=== PATIENT | male | born 1960 | race Caucasian/White ===

== ENCOUNTER 2019-08-07 06:46 | Day surgery (SDC) | payer OTHER, SELFPAY ==
--- NOTE | 2019-08-07 | PATH_ITS ---
[facility] Accession Number: [id number] . 01 Material submitted: . colon - COLON POLYPS AT 20 CM . 02 Diagnosis: Colon, Polyps at 20 cm, Biopsy: Tubular adenoma in one of three fragments. Hyperplastic polyp in one fragment. MRV 08/08/2019 0942 Local . 02 Electronically signed: . Karina Javed MD, Pathologist NPI- [id number] . 01 Gross description: . COLON POLYPS AT 20 CM: Received in formalin are 3 fragment(s) of carroll, soft tissue measuring 0.1 x 0.1 x 0.1 cm to 0.3 x 0.2 x 0.2 cm submitted entirely in 1 cassette(s) /[facility] 08/07/2019 193 Local . 02 Pathologist provided ICD-10: D12.6 . 02 CPT . 432716 Performed at: 01 [facility] [address] [facility], [place], [place] [id number] MD Regan Romo MD Phone: [phone] Performed at: 02 [facility] [address] [place], [place] [id number] MD Karina Javed MD Phone: [phone]
[2019-08-07 07:06] VITALS: BMI 23.3
[2019-08-07 07:11] VITALS: BP 119/70; PULSE 53; RESP 12; TEMP 36.7; O2SAT 98
[2019-08-07] MEDS: SODIUM CHLORIDE 0.9% 1,000 ML 200 ML IV (07:17)
--- NOTE | 2019-08-07 07:55 | PM.HP.1 ---
History of Present Illness History of Present Illness Date Patient Seen: 08/07/19 Time Patient Seen: 07:55 Chief complaint: [id number] Narrative: Patient presents for colorectal screening. They had a previous colonoscopy 10 years ago that demonstrated adenomatous polyps which were removed No personal or family history of colon cancer. On further history denies any recent gastrointestinal symptoms. No nausea, vomiting, abdominal pain, loss of appetite, unexplained weight loss, change in bowel habits, diarrhea, constipation, melena, hematochezia, or bright red blood per rectum. Patient History Family & Social History Social History: household members spouse Tobacco & Substance use: Smoking Status Former smoker alcohol intake current alcohol intake frequency 0-2 drinks per day Substance Use Type marijuana Meds Home Medications and Allergies Home Medications Medication Instructions Recorded Confirmed Type No Known Home Medications 08/07/19 08/07/19 History Allergies Allergy/AdvReac Type Severity Reaction Status Date / Time Sulfa (Sulfonamide Allergy Severe RASH Verified 08/07/19 07:03 Antibiotics) [SULFA (SULFONAMIDE ANTIBIOTICS)] Review of Systems Review of Systems Narrative: A 10 point review of systems is negative except as noted in the HPI Exam Vital Signs (past 8 hours): - 08/07/19 07:11 Temperature 98.1 F Pulse Rate 53 L Respiratory Rate 12 Blood Pressure 119/70 Pulse Oximetry 98 Oxygen Delivery Method Room Air Narrative Exam Narrative: General-no acute distress, well nourished HEENT-moist mucous membranes, no scleral icterus Neck-supple, no lymphadenopathy Chest- non labored respirations, clear to auscultation bilaterally Cardiac-regular rate no peripheral edema Abdomen-soft, nontender, non distended Extremities-warm, well perfused Neurological-alert and oriented, no focal deficits Assessment & Plan Assessment and plan (1) Screening for colon cancer: Current visit: Yes Status: Acute Assessment & Plan narrative: The patient requires colorectal screening and colonoscopy is recommended. Technical details were discussed. Risks, benefits, alternatives explained. Risks including but not limited to myocardial infarction, aspiration, bleeding, pain, missed lesion, incomplete examination, need for further radiographic studies, colonic perforation, and need for major abdominal surgery were discussed. All questions were answered to their satisfaction, and they are in agreement with this plan.
--- NOTE | 2019-08-07 08:18 | PM.OP.ENDO ---
Operative Date/Time/Diagnoses Date of procedure: 08/07/19 Time of procedure: 08:18 Pre-op diagnosis: Screening colonoscopy Post-op diagnosis: same Procedure & Clinicians Study performed: Colonoscopy Same procedure as scheduled: Yes Indications: 59-year-old male last colonoscopy 10 years ago demonstrated adenomatous polyps presents for routine screening. Surgeon: Santino Enriquez Procedure Notes SCOAP/Timeout: Performed Procedure in detail: Patient placed in left lateral decubitus position. Time out was performed. Procedural sedation was administered with Versed and Fentanyl. A rectal exam demonstrated no external hemorrhoids no internal masses. Colonoscopy scope was placed into the rectum and advanced through the colon to the cecum. The ileocecal valve was identified. The scope was then slowly withdrawn examining colon thoroughly in all directions. The colonoscopy was notable for the following 1. Sigmoid diverticulosis 2. Hyperplastic appearing polyps x2 at 20 cm from the anal verge removed with Jumbo forceps hemostasis observed. 3. Grade 1 internal hemorrhoids 4. Quality of prep fair Scope withdrawal time: 6 Sedation minutes: 17 Findings: diverticulosis and polyp Specimen(s): other (Polyp from 20 cm x 2) Complications: none Impression: Diverticulosis, polyps Post-procedure Recommendations: Colonscopy in 10 years Disposition: same day surgery
[2019-08-07] MEDS: fentaNYL 250 MCG/5 ML INJ IV (08:22)
[2019-08-07] MEDS: MIDAZOLAM 5 MG/5 ML VIAL IV (08:22)
[2019-08-07 08:25] VITALS: BP 131/78; PULSE 61; RESP 14; TEMP 36.4; O2SAT 97
[2019-08-07 08:27] VITALS: BP 124/73; PULSE 55; RESP 14; O2SAT 96
[2019-08-07 08:32] VITALS: BP 113/74; PULSE 55; RESP 14; O2SAT 96
[2019-08-07 08:37] VITALS: BP 113/84; PULSE 50; RESP 11; TEMP 36.3; O2SAT 97
== END 2019-08-07 08:52 | disposition home or self-care (01) ==
PROVIDERS: PCP Internal Medicine; Referring Provider Surgery; Visit Provider Surgery
PROC: 0DJD8ZZ Inspection of Lower Intestinal Tract, Via Natural or Artificial Opening Endoscopic (ICD-10-PCS; CPT 45378; principal; 2019-08-07 07:45)
DX: Z12.11 Encounter for screening for malignant neoplasm of colon (principal); D12.6 Benign neoplasm of colon, unspecified; K64.0 First degree hemorrhoids; K57.30 Diverticulosis of large intestine without perforation or abscess without bleeding
CPT/HCPCS: 45380; 99152; J2250; J3010

== ENCOUNTER → 2020-01-31 13:10 | Outpatient (CLI) | payer OTHER, SELFPAY ==
[2020-01-31 14:07] LABS: Appearance Urine UA CLOUDY; Bilirubin Urine UA NEGATIVE (NEGATIVE); Color Urine UA YELLOW; Glucose Urine UA NEGATIVE (Negative); Ketones Urine UA NEGATIVE (NEGATIVE); Leukocyte Esterase Urine UA 2+ (NEGATIVE); Nitrite Urine UA NEGATIVE (Negative); Occult Blood Urine UA 3+ (Negative); Protein Urine UA 3+ (Negative); Urobilinogen Urine UA 0.2 E.U./dL (0.2)
[2020-01-31 14:10] LABS: Bacteria Urine Moderate (10-30); RBC Urine >100/HPF (0-5/HPF); WBC Urine >100/HPF (0-5/HPF)
[2020-01-31 14:11] LABS: Culture Indicated Urine Specimen Cultured
== END ==
PROVIDERS: PCP Internal Medicine; Referring Provider Student in an Organized Health Care Education/Training Program; Visit Provider Student in an Organized Health Care Education/Training Program
DX: R30.0 Dysuria (principal); R35.0 Frequency of micturition
CPT/HCPCS: 81001; 87077; 87086; 87186

== ENCOUNTER → 2020-03-23 08:25 | Outpatient (CLI) | payer OTHER, SELFPAY ==
[2020-03-25 06:01] LABS: COVID19 Sendout Not Detected (Not Detect)
== END ==
PROVIDERS: PCP Internal Medicine; Visit Provider Physician Assistant
DX: Z11.59 Encounter for screening for other viral diseases (principal)
CPT/HCPCS: 87635

== ENCOUNTER → 2020-06-03 11:55 | Outpatient (CLI) | payer OTHER, SELFPAY ==
[2020-06-03 13:01] LABS: Bilirubin Urine UA NEGATIVE (NEGATIVE); Color Urine UA YELLOW; Glucose Urine UA NEGATIVE (Negative); Ketones Urine UA NEGATIVE (NEGATIVE); Leukocyte Esterase Urine UA TRACE (NEGATIVE); Nitrite Urine UA NEGATIVE (Negative); Occult Blood Urine UA TRACE-INTACT (Negative); Protein Urine UA NEGATIVE (Negative); Specific Gravity Urine UA 1.015 (1.000-1.035); Urobilinogen Urine UA 0.2 E.U./dL (0.2)
[2020-06-03 13:03] LABS: Appearance Urine UA Slightly Cloudy
[2020-06-03 13:13] LABS: RBC Urine 0-1/HPF (0-5/HPF); Squamous Epithelial Cell Urine 0-1 /HPF (0-5/HPF); WBC Urine 5-10/HPF (0-5/HPF)
[2020-06-03 13:14] LABS: Bacteria Urine Occasional (0-1); Culture Indicated Urine Specimen Cultured
== END ==
PROVIDERS: PCP Internal Medicine; Referring Provider Internal Medicine; Visit Provider Internal Medicine
DX: R30.0 Dysuria (principal)
CPT/HCPCS: 81001; 87086

== ENCOUNTER → 2020-08-09 12:27 | Outpatient (CLI) | payer OTHER, SELFPAY | PROVIDERS: PCP Internal Medicine; Visit Provider Physician Assistant | DX: R30.0 Dysuria (principal) | CPT/HCPCS: 87086 ==

== ENCOUNTER → 2020-08-29 17:15 | Outpatient (CLI) | payer OTHER, SELFPAY | PROVIDERS: PCP Internal Medicine; Visit Provider Physician Assistant | DX: N30.01 Acute cystitis with hematuria (principal) | CPT/HCPCS: 87086 ==

== ENCOUNTER → 2020-09-13 08:31 | Outpatient (CLI) | payer OTHER, SELFPAY ==
[2020-09-13 10:11] LABS: Alanine Aminotransferase 14 IU/L (<50); Albumin 3.9 g/dL (3.5-5.0); Albumin Globulin Ratio 1.3 (1.0-2.8); Alkaline Phosphatase 46 U/L (38-126); Aspartate Aminotransferase 23 IU/L (17-59); BUN Creatinine Ratio 27.6 (6-22); Bilirubin Total 0.3 mg/dL (0.2-1.3); Blood Urea Nitrogen 21 mg/dL (9-20); Carbon Dioxide 27 mmol/L (22-32); Chloride 106 mmol/L (98-107); Cholesterol 187 mg/dL (140-199); Estimated Glomerular Filt Rate > 60.0 mL/min (>60); Globulin 3.1 g/dL (1.7-4.1); Glucose 97 mg/dL (80-110); HDL Cholesterol 78 mg/dL (40-60); HEMOLYSIS < 15 (0-50); LDL Cholesterol Calculated 99 mg/dL (<100); Potassium 4.2 mmol/L (3.4-5.1); Sodium 139 mmol/L (137-145); Triglycerides 50 mg/dL (35-150)
[2020-09-13 10:39] LABS: Prostate Specific Antigen Scrn 6.52 ng/mL (0.1-4.0)
== END ==
PROVIDERS: PCP Internal Medicine; Referring Provider Internal Medicine; Visit Provider Internal Medicine
DX: Z13.1 Encounter for screening for diabetes mellitus (principal); Z13.220 Encounter for screening for lipoid disorders; Z13.6 Encounter for screening for cardiovascular disorders; Z12.5 Encounter for screening for malignant neoplasm of prostate
CPT/HCPCS: 36415; 80053; 80061; G0103

== ENCOUNTER → 2020-09-19 10:02 | Outpatient (CLI) | payer OTHER, SELFPAY ==
[2020-09-20 09:11] LABS: PSA Free % 7.2 % (.); PSA, Total 4.7 ng/mL (0.0-4.0)
== END ==
PROVIDERS: PCP Internal Medicine; Referring Provider Internal Medicine; Visit Provider Internal Medicine
DX: R97.20 Elevated prostate specific antigen [PSA] (principal)
CPT/HCPCS: 36415; 84153; 84154

== ENCOUNTER 2020-12-31 08:15 | Outpatient (RCR) | payer OTHER, SELFPAY ==
--- NOTE | 2020-12-16 16:00 | PT.OIE ---
Current Diagnoses Sciatica, right side (12/16/20) Past Medical History (Last Updated 12/06/20 @ 10:44 by Tushar Beatty MD) BPH w urinary obs/LUTS Elevated PSA History of UTI Incomplete bladder emptying Visit Care Team Role Provider Type Tushar Beatty MD Attending Provider Physician Family Provider Primary Care Provider Referring Provider Specialty: Internal Medicine Address: [address] [place] [address], [address], [facility] Email: [email or web address] Physical Therapy Initial Evaluation PT-OP-A Visit Information Start: 12/16/20 16:11 Freq: Status: Active Protocol: Document 12/16/20 16:00 HH (Rec: 12/16/20 16:30 HH [email or web address]) Out-Patient Physical Therapy Visit Information Visit Information Visit Type Initial Evaluation Visit Start Time 15:15 Visit Stop Time 16:05 Total Visit Minutes 50 Visit Number 07/01 Number of RN ELIGIBILITY Visits 0 Evaluation Information Evaluation Date 12/16/20 PT-OP-B Current Condition Start: 12/16/20 16:11 Freq: Status: Active Protocol: Document 12/16/20 16:00 HH (Rec: 12/16/20 16:30 HH [email or web address]) Current Condition History of Current Condition Onset Date early November Current Complaints R sciatica, difficulty in walking and standing. History of Current Condition Leland is a 60 yo male here for his new onset of R sciatic started in November. He stated his pain located mostly at R buttock but with tingling and numbness towards lateral calf and dorsal aspect of the foot. His pain worse with standing and walking but immediately better with bend over/ sitting position. Symptoms have been 10-15 % better since he went to see Dr. Beatty who gave him some anti-inflammatory medication. Pt also went to see his chiropractor but no positive result. Pt is very active who has a big yard to manage. 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 Prior Treatments and Tests failed chiropractic treatment anti-inflammatory medication with good pain control Future Testing and Treatments Planned Dr. Beatty stated further imaging / nerve study might be needed if conservative tx failed. PT-OP-C Subjective Start: 12/16/20 16:11 Freq: Status: Active Protocol: Document 12/16/20 16:00 HH (Rec: 12/16/20 16:30 [email or web address]) Patient Questionnaires Oswestry Low Back Index Oswestry Score 26 Oswestry Impairment 20 to 39% Impaired (Score 20- 39) OP-PT Pain Assessment Location R buttock Pain Location Details R buttock Intensity 4 Scale Used Numeric (0 - 10) Description Pinching,Pressure,Pulling, Radiating,Sharp,Shooting Frequency Frequent Pain Aggravating Factors Position,Activity,Exercise, Standing,Walking,Stair Climbing Pain Alleviating Factors Position,Sitting PT-OP-D Balance Start: 12/16/20 16:11 Freq: Status: Active Protocol: Document 12/16/20 16:00 HH (Rec: 12/16/20 16:30 [email or web address]) Balance Tests Single Limb Standing Single Limb- Right 22, 10 s with UE out, toe out Single Limb- Left 40, 45s PT-OP-F Manual Assessment Start: 12/16/20 16:11 Freq: Status: Active Protocol: Document 12/16/20 16:00 HH (Rec: 12/16/20 16:30 [email or web address]) Manual Assessments Soft Tissue Assessment Soft Tissue Mobility Assessment significant hypertonicity with pain on piriformis and gluteal muscles PT-OP-G Mobility & Gait Start: 12/16/20 16:11 Freq: Status: Active Protocol: Document 12/16/20 16:00 HH (Rec: 12/16/20 16:30 [email or web address]) OP Gait Assessment Gait Deviations General Gait Pattern Antalgic,Decreased Stride Length,Decreased Feet Clearance,Lateral Trunk Lean Comments Gait Comments +ve R trendelenburg sign, R toe out gait (ER tibia) PT-OP-H Neuro Start: 12/16/20 16:11 Freq: Status: Active Protocol: Document 12/16/20 16:00 HH (Rec: 12/16/20 16:30 [email or web address]) Sensation Evaluation Gross Sensation Gross Sensation Right LE Impaired Sensation Description Numbness,Tingling Dermatome Impairments L5 Comments Summary Comments tingling and numbness from lateral aspect of lower leg to dorsal aspect of R foot. Deep Tendon Reflex & Clonus Assessment Deep Tendon Reflex Bilateral Achilles Deep Tendon Reflex 2+ Normal Bilateral Patellar Deep Tendon Reflex 1+ Diminished PT-OP-J Posture/Palpation/Skin Start: 12/16/20 16:11 Freq: Status: Active Protocol: Document 12/16/20 16:00 HH (Rec: 12/16/20 16:30 [email or web address]) Posture Evaluation Position Standing Weight Distribution Weight Shifted Right Knee Posture (R) Genu Valgus,(R) Ext. Tibial Torsion Ankle/Foot Posture (R) Pronated,(R) Forefoot Abducted Foot Arch (R) Low Arch Comments Posture Comments standing posture= R lateral weight shift on R with increased pain pain decreased with assisted lateral weight shift to L PT-OP-K Range of Motion Start: 12/16/20 16:11 Freq: Status: Active Protocol: Document 12/16/20 16:00 HH (Rec: 12/16/20 16:30 [email or web address]) Lumbar Spine Range of Motion Lumbar Spine Active Degrees Testing Position Standing Comments toe touch test= reach mid vega , no pain but stretching sensation at lumbar noted. regine sign noted lateral flexion to R= increased R buttock pain lateral flexion to L= no increased buttock pain R quadrant test= significant increased R buttock pain L quadrant test= no increased pain Hip Goniometric Range of Motion Hip Right Active Hip ROM WFL Yes Testing Position Supine Straight Leg Raise 90 Comments PSLR = increased R neural tension noted from buttock to posterior thigh Left Active Hip ROM WFL Yes Testing Position Supine Straight Leg Raise 90 Comments PSLR =90 PT-OP-M Strength Start: 12/16/20 16:11 Freq: Status: Active Protocol: Document 12/16/20 16:00 HH (Rec: 12/16/20 16:30 [email or web address]) Hip Strength Hip Manual Muscle Testing Right Flexion (L2) 5 Normal Extension (S1) 4 Good Abduction 4 Good Adduction 5 Normal Left Flexion (L2) 5 Normal Extension (S1) 5 Normal Abduction 5 Normal Adduction 5 Normal Knee Strength Knee Manual Muscle Testing Right Flexion (S2) 5 Normal Extension (L3) 5 Normal Left Flexion (S2) 5 Normal Extension (L3) 5 Normal Ankle/Foot Strength Ankle and Foot Manual Muscle Testing Right Dorsiflexion (L4) 5 Normal Plantarflexion (S1) 5 Normal Inversion 5 Normal Eversion (S1) 5 Normal Left Dorsiflexion (L4) 5 Normal Plantarflexion (S1) 5 Normal Inversion 5 Normal Eversion (S1) 5 Normal PT-OP-Q Treatments Start: 12/16/20 16:11 Freq: Status: Active Protocol: Document 12/16/20 16:00 HH (Rec: 12/16/20 16:30 HH [email or web address]) Therapeutic Exercises Supine Exercises tennis ball release Supine Exercise Name at R buttock Side right Comments for hEP Sitting Exercises lumbar flexion Sitting Exercise Name on chair Side bilateral Comments stretching feeling noted. for HEP Manual Therapy Treatment Manual Traction R hip Reps/Duration 4 mins Comments 10 sec hold pt reports buttock pain relief PT-OP-T Assessment and Plan Start: 12/16/20 16:11 Freq: Status: Active Protocol: Document 12/16/20 16:00 HH (Rec: 12/17/20 07:59 HH [email or web address]) Physical Therapy Assessment Rehab Potential Rehabilitation Potential Good Evaluation Complexity Number of Personal Factors/Comorbidities 1-2 Number of Body Systems Impaired 1-2 Clinical Presentation at Evaluation Stable Impairments Impairments Activity Tolerance,Balance, Functional Activities, Functional Mobility,Gait,Pain, Posture,ROM,Sensation,Soft Tissue Mobility,Strength, Transfers Goals hep Impairment pt does not have a HEP Short Term Goal (STG) pt will be able to complete daily HEP independently and safely STG Duration 4 weeks neuro-sign Impairment pt has tingling numbness sensation to lateral calf and dorsal of r foot Short Term Goal (STG) pt will show improved neuro sign by not having tingling / numbness sensation to lateral calf and dorsal aspect of the R foot STG Duration 8 weeks activity tolerance Impairment pt is unable to walk >1/4 mile or standing >1 hour d/t pain Short Term Goal (STG) pt will show improved activity tolerance to be able to walk >1/2 mile without increase symptoms STG Duration 4 weeks Intermediate Goal (LTG) pt will show improved activity tolerance to be able to walk >1 mile without increase symptoms LTG Duration 8 weeks owestry Impairment pt scores 26 on Owestry Short Term Goal (STG) pt will show improved overall quality of life by scoring < 20 on Owestry STG Duration 4 weeks Intermediate Goal (LTG) pt will show improved overall quality of life by scoring < 15 on Owestry LTG Duration 8 weeks Assessment Summary Assessment Leland is a 60yo active male here for his new onset of R buttock pain with numbness down to his R lateral calf and dorsal aspect of the R foot since November. Upon assessment, pt presents signs of lumbar radiculopathy at L5 nerve root who shows loss of sensation at the dermatome level. He does not have strength loss and gross motor = WFL. However , pt stands with R lateral weight shift and trunk extension whose symptoms reduced with long axis traction at R LE and postural correction. His posture might be caused by multiple surgeries on his RLE(see above ). He also doesnt c/o pain with flexion pattern as well. 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 Plan Frequency and Duration Frequency of Treatment 2x/Week Duration of Treatment 8 weeks Plan of Care Start Date 12/16/20 Plan of Care End Date 02/15/21 Therapeutic Interventions Therapeutic Interventions Aquatic Therapy,Balance Training,Gait Training,Home Exercise Program,Joint Mobilizations,Manual Therapy, Neuromuscular Re-education, Patient/Caregiver Education, Self-Care/Home Management,Soft Tissue Mobilization,Taping, Therapeutic Activities, Therapeutic Exercises Modalities Cold Pack/Ice Massage,Electric Stimulation,Hot Packs, Infrared Therapy,Traction- Mechanical,Ultrasound Next Visit Focus/Plan Next Note Type Treatment Note Next Visit Plan review tennis ball release, trunk flexion stretch start hip traction piriformis stretch open book stretch check R calf strength postural correction
--- NOTE | 2020-12-16 16:00 | PT.OPPOC ---
Physical, Occupational & Speech Therapy At [facility] Current Diagnoses Sciatica, right side (12/16/20) Visit Care Team Role Provider Type Tushar Beatty MD Attending Provider Physician Family Provider Primary Care Provider Referring Provider Specialty: Internal Medicine Address: [address] [place] [address], [address], [address] Email: [email or web address] Plan Of Care PT-OP-T Assessment and Plan Start: 12/16/20 16:11 Freq: Status: Active Protocol: Document 12/16/20 16:00 HH (Rec: 12/17/20 07:59 [email or web address]) Physical Therapy Assessment Rehab Potential Rehabilitation Potential Good Evaluation Complexity Number of Personal Factors/Comorbidities 1-2 Number of Body Systems Impaired 1-2 Clinical Presentation at Evaluation Stable Impairments Impairments Activity Tolerance,Balance, Functional Activities, Functional Mobility,Gait,Pain, Posture,ROM,Sensation,Soft Tissue Mobility,Strength, Transfers Goals hep Impairment pt does not have a HEP Short Term Goal (STG) pt will be able to complete daily HEP independently and safely STG Duration 4 weeks neuro-sign Impairment pt has tingling numbness sensation to lateral calf and dorsal of r foot Short Term Goal (STG) pt will show improved neuro sign by not having tingling / numbness sensation to lateral calf and dorsal aspect of the R foot STG Duration 8 weeks activity tolerance Impairment pt is unable to walk >1/4 mile or standing >1 hour d/t pain Short Term Goal (STG) pt will show improved activity tolerance to be able to walk >1/2 mile without increase symptoms STG Duration 4 weeks Kosher Butcher Goal (LTG) pt will show improved activity tolerance to be able to walk >1 mile without increase symptoms LTG Duration 8 weeks owestry Impairment pt scores 26 on Owestry Short Term Goal (STG) pt will show improved overall quality of life by scoring < 20 on Owestry STG Duration 4 weeks Jail Goal (LTG) pt will show improved overall quality of life by scoring < 15 on Owestry LTG Duration 8 weeks Assessment Summary Assessment Leland is a 60yo active male here for his new onset of R buttock pain with numbness down to his R lateral calf and dorsal aspect of the R foot since November. Upon assessment, pt presents signs of lumbar radiculopathy at L5 nerve root who shows loss of sensation at the dermatome level. He does not have strength loss and gross motor = WFL. However , pt stands with R lateral weight shift and trunk extension whose symptoms reduced with long axis traction at R LE and postural correction. His posture might be caused by multiple surgeries on his RLE(see above ). He also doesnt c/o pain with flexion pattern as well. 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 Plan Frequency and Duration Frequency of Treatment 2x/Week Duration of Treatment 8 weeks Plan of Care Start Date 12/16/20 Plan of Care End Date 02/15/21 Therapeutic Interventions Therapeutic Interventions Aquatic Therapy,Balance Training,Gait Training,Home Exercise Program,Joint Mobilizations,Manual Therapy, Neuromuscular Re-education, Patient/Caregiver Education, Self-Care/Home Management,Soft Tissue Mobilization,Taping, Therapeutic Activities, Therapeutic Exercises Modalities Cold Pack/Ice Massage,Electric Stimulation,Hot Packs, Infrared Therapy,Traction- Mechanical,Ultrasound Next Visit Focus/Plan Next Note Type Treatment Note Next Visit Plan review tennis ball release, trunk flexion stretch start hip traction piriformis stretch open book stretch check R calf strength postural correction Plan of Care Dates Plan of Care Start Date 12/16/20 Plan of Care End Date 02/15/21 Electronically Signed by: Demar Palm, PT 12/17/20 8206 Please Sign and Return: I have reviewed this Plan of Care and certify that the skilled therapy services above are required to meet the patient?s needs. Physician Signature Date Printed Name and Credentials Clinical Instructor Signature Printed Name and Credentials
--- NOTE | 2020-12-18 10:34 | PT.OTN ---
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 History of Current Condition Leland is a 60 yo male here for his new onset of R sciatic started in November. He stated his pain located mostly at R buttock but with tingling and numbness towards lateral calf and dorsal aspect of the foot. His pain worse with standing and walking but immediately better with bend over/ sitting position. Symptoms have been 10-15 % better since he went to see Dr. Beatty who gave him some anti-inflammatory medication. Pt also went to see his chiropractor but no positive result. Pt is very active who has a big yard to manage. 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 Prior Treatments and Tests failed chiropractic treatment anti-inflammatory medication with good pain control Future Testing and Treatments Planned Dr. Beatty stated further imaging / nerve study might be needed if conservative tx failed. PT-OP-C Subjective Start: 12/16/20 16:11 Freq: Status: Active Protocol: Document 12/18/20 09:51 HH (Rec: 12/18/20 10:34 [id number]) OP-PT Subjective Patient Comments Patient Comments i started trying the exercises so far. Its doing okay Patient Reported Progress Same PT-OP-D Balance Start: 12/16/20 16:11 Freq: Status: Active Protocol: Document 12/16/20 16:00 HH (Rec: 12/16/20 16:30 [email or web address]) Balance Tests Single Limb Standing Single Limb- Right 22, 10 s with UE out, toe out Single Limb- Left 40, 45s PT-OP-F Manual Assessment Start: 12/16/20 16:11 Freq: Status: Active Protocol: Document 12/16/20 16:00 HH (Rec: 12/16/20 16:30 [email or web address]) Manual Assessments Soft Tissue Assessment Soft Tissue Mobility Assessment significant hypertonicity with pain on piriformis and gluteal muscles PT-OP-G Mobility & Gait Start: 12/16/20 16:11 Freq: Status: Active Protocol: Document 12/16/20 16:00 HH (Rec: 12/16/20 16:30 [email or web address]) OP Gait Assessment Gait Deviations General Gait Pattern Antalgic,Decreased Stride Length,Decreased Feet Clearance,Lateral Trunk Lean Comments Gait Comments +ve R trendelenburg sign, R toe out gait (ER tibia) PT-OP-H Neuro Start: 12/16/20 16:11 Freq: Status: Active Protocol: Document 12/16/20 16:00 HH (Rec: 12/16/20 16:30 [email or web address]) Sensation Evaluation Gross Sensation Gross Sensation Right LE Impaired Sensation Description Numbness,Tingling Dermatome Impairments L5 Comments Summary Comments tingling and numbness from lateral aspect of lower leg to dorsal aspect of R foot. Deep Tendon Reflex & Clonus Assessment Deep Tendon Reflex Bilateral Achilles Deep Tendon Reflex 2+ Normal Bilateral Patellar Deep Tendon Reflex 1+ Diminished PT-OP-J Posture/Palpation/Skin Start: 12/16/20 16:11 Freq: Status: Active Protocol: Document 12/16/20 16:00 HH (Rec: 12/16/20 16:30 [email or web address]) Posture Evaluation Position Standing Weight Distribution Weight Shifted Right Knee Posture (R) Genu Valgus,(R) Ext. Tibial Torsion Ankle/Foot Posture (R) Pronated,(R) Forefoot Abducted Foot Arch (R) Low Arch Comments Posture Comments standing posture= R lateral weight shift on R with increased pain pain decreased with assisted lateral weight shift to L PT-OP-K Range of Motion Start: 12/16/20 16:11 Freq: Status: Active Protocol: Document 12/16/20 16:00 HH (Rec: 12/16/20 16:30 [email or web address]) Lumbar Spine Range of Motion Lumbar Spine Active Degrees Testing Position Standing Comments toe touch test= reach mid vega , no pain but stretching sensation at lumbar noted. regine sign noted lateral flexion to R= increased R buttock pain lateral flexion to L= no increased buttock pain R quadrant test= significant increased R buttock pain L quadrant test= no increased pain Hip Goniometric Range of Motion Hip Right Active Hip ROM WFL Yes Testing Position Supine Straight Leg Raise 90 Comments PSLR = increased R neural tension noted from buttock to posterior thigh Left Active Hip ROM WFL Yes Testing Position Supine Straight Leg Raise 90 Comments PSLR =90 PT-OP-M Strength Start: 12/16/20 16:11 Freq: Status: Active Protocol: Document 12/16/20 16:00 HH (Rec: 12/16/20 16:30 [email or web address]) Hip Strength Hip Manual Muscle Testing Right Flexion (L2) 5 Normal Extension (S1) 4 Good Abduction 4 Good Adduction 5 Normal Left Flexion (L2) 5 Normal Extension (S1) 5 Normal Abduction 5 Normal Adduction 5 Normal Knee Strength Knee Manual Muscle Testing Right Flexion (S2) 5 Normal Extension (L3) 5 Normal Left Flexion (S2) 5 Normal Extension (L3) 5 Normal Ankle/Foot Strength Ankle and Foot Manual Muscle Testing Right Dorsiflexion (L4) 5 Normal Plantarflexion (S1) 5 Normal Inversion 5 Normal Eversion (S1) 5 Normal Left Dorsiflexion (L4) 5 Normal Plantarflexion (S1) 5 Normal Inversion 5 Normal Eversion (S1) 5 Normal PT-OP-Q Treatments Start: 12/16/20 16:11 Freq: Status: Active Protocol: Document 12/18/20 09:51 (Rec: 12/18/20 10:34 [id number]) Therapeutic Exercises Supine Exercises piriformis Side right Reps/Minutes 15 sec hold x 5 Comments for HEP knee to chest Side bilateral Reps/Minutes 15 sec hold x5 Comments for HEP tennis ball release Supine Exercise Name at R buttock Side right Comments for hEP Sidelying Exercises open book Reps/Minutes 15sec hold x5 Comments for HEP Standing Exercises lateral flexion Standing Exercise Name to L Comments no discomfort noted, pulling sensation at R side Manual Therapy Treatment Manual Traction R hip Comments 10 sec hold x5 pt reports buttock pain relief PT-OP-T Assessment and Plan Start: 12/16/20 16:11 Freq: Status: Active Protocol: Document 12/18/20 09:51 HH (Rec: 12/18/20 10:34 [id number]) Physical Therapy Assessment Goals hep Impairment pt does not have a HEP Short Term Goal (STG) pt will be able to complete daily HEP independently and safely STG Duration 4 weeks neuro-sign Impairment pt has tingling numbness sensation to lateral calf and dorsal of r foot Short Term Goal (STG) pt will show improved neuro sign by not having tingling / numbness sensation to lateral calf and dorsal aspect of the R foot STG Duration 8 weeks activity tolerance Impairment pt is unable to walk >1/4 mile or standing >1 hour d/t pain Short Term Goal (STG) pt will show improved activity tolerance to be able to walk >1/2 mile without increase symptoms STG Duration 4 weeks Residential Goal (LTG) pt will show improved activity tolerance to be able to walk >1 mile without increase symptoms LTG Duration 8 weeks owestry Impairment pt scores 26 on Owestry Short Term Goal (STG) pt will show improved overall quality of life by scoring < 20 on Owestry STG Duration 4 weeks Footwear Factory Worker Goal (LTG) pt will show improved overall quality of life by scoring < 15 on Owestry LTG Duration 8 weeks Assessment Summary Assessment I noticed pt also tends to stand with extended R hip which increases mechanical pressure R lumbar and hip region. This session focused on decompression with traction , lateral flexion to L and open book stretch and pt did not feel pain in standing at the end of the session. Will review his HEP next visit. Physical Therapy Plan Frequency and Duration Frequency of Treatment 2x/Week Duration of Treatment 8 weeks Plan of Care Start Date 12/16/20 Plan of Care End Date 02/15/21 Therapeutic Interventions Therapeutic Interventions Aquatic Therapy,Balance Training,Gait Training,Home Exercise Program,Joint Mobilizations,Manual Therapy, Neuromuscular Re-education, Patient/Caregiver Education, Self-Care/Home Management,Soft Tissue Mobilization,Taping, Therapeutic Activities, Therapeutic Exercises Modalities Cold Pack/Ice Massage,Electric Stimulation,Hot Packs, Infrared Therapy,Traction- Mechanical,Ultrasound Next Visit Focus/Plan Next Note Type Treatment Note Next Visit Plan review tennis ball release, trunk flexion stretch start hip traction piriformis stretch open book stretch check R calf strength postural correction
--- NOTE | 2020-12-24 15:23 | PT.OTN ---
Current Diagnoses Sciatica, right side (12/24/20) Physical Therapy Treatment Note PT-OP-A Visit Information Start: 12/16/20 16:11 Freq: Status: Active Protocol: Document 12/24/20 08:15 AMB (Rec: 12/24/20 15:21 AMB [email or web address]) Out-Patient Physical Therapy Visit Information Visit Information Visit Type Treatment Note Visit Start Time 08:15 Visit Stop Time 09:00 Total Visit Minutes 45 Visit Number 08/29 PT-OP-B Current Condition Start: 12/16/20 16:11 Freq: Status: Active Protocol: Document 12/16/20 16:00 HH (Rec: 12/16/20 16:30 HH [email or web address]) Current Condition History of Current Condition Onset Date early November Current Complaints R sciatica, difficulty in walking and standing. History of Current Condition Leland is a 60 yo male here for his new onset of R sciatic started in November. He stated his pain located mostly at R buttock but with tingling and numbness towards lateral calf and dorsal aspect of the foot. His pain worse with standing and walking but immediately better with bend over/ sitting position. Symptoms have been 10-15 % better since he went to see Dr. Beatty who gave him some anti-inflammatory medication. Pt also went to see his chiropractor but no positive result. Pt is very active who has a big yard to manage. 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 Prior Treatments and Tests failed chiropractic treatment anti-inflammatory medication with good pain control Future Testing and Treatments Planned Dr. Beatty stated further imaging / nerve study might be needed if conservative tx failed. PT-OP-C Subjective Start: 12/16/20 16:11 Freq: Status: Active Protocol: Document 12/24/20 08:15 AMB (Rec: 12/24/20 15:21 AMB [email or web address]) OP-PT Subjective Patient Comments Patient Comments I have been doing the exercises in the morning to stretch and it seems helpful in the morning, still having pain at the end of the day. PT-OP-D Balance Start: 12/16/20 16:11 Freq: Status: Active Protocol: Document 12/16/20 16:00 HH (Rec: 12/16/20 16:30 HH [email or web address]) Balance Tests Single Limb Standing Single Limb- Right 22, 10 s with UE out, toe out Single Limb- Left 40, 45s PT-OP-F Manual Assessment Start: 12/16/20 16:11 Freq: Status: Active Protocol: Document 12/16/20 16:00 HH (Rec: 12/16/20 16:30 [email or web address]) Manual Assessments Soft Tissue Assessment Soft Tissue Mobility Assessment significant hypertonicity with pain on piriformis and gluteal muscles PT-OP-G Mobility & Gait Start: 12/16/20 16:11 Freq: Status: Active Protocol: Document 12/16/20 16:00 HH (Rec: 12/16/20 16:30 [email or web address]) OP Gait Assessment Gait Deviations General Gait Pattern Antalgic,Decreased Stride Length,Decreased Feet Clearance,Lateral Trunk Lean Comments Gait Comments +ve R trendelenburg sign, R toe out gait (ER tibia) PT-OP-H Neuro Start: 12/16/20 16:11 Freq: Status: Active Protocol: Document 12/16/20 16:00 HH (Rec: 12/16/20 16:30 [email or web address]) Sensation Evaluation Gross Sensation Gross Sensation Right LE Impaired Sensation Description Numbness,Tingling Dermatome Impairments L5 Comments Summary Comments tingling and numbness from lateral aspect of lower leg to dorsal aspect of R foot. Deep Tendon Reflex & Clonus Assessment Deep Tendon Reflex Bilateral Achilles Deep Tendon Reflex 2+ Normal Bilateral Patellar Deep Tendon Reflex 1+ Diminished PT-OP-J Posture/Palpation/Skin Start: 12/16/20 16:11 Freq: Status: Active Protocol: Document 12/16/20 16:00 HH (Rec: 12/16/20 16:30 [email or web address]) Posture Evaluation Position Standing Weight Distribution Weight Shifted Right Knee Posture (R) Genu Valgus,(R) Ext. Tibial Torsion Ankle/Foot Posture (R) Pronated,(R) Forefoot Abducted Foot Arch (R) Low Arch Comments Posture Comments standing posture= R lateral weight shift on R with increased pain pain decreased with assisted lateral weight shift to L PT-OP-K Range of Motion Start: 12/16/20 16:11 Freq: Status: Active Protocol: Document 12/16/20 16:00 HH (Rec: 12/16/20 16:30 [email or web address]) Lumbar Spine Range of Motion Lumbar Spine Active Degrees Testing Position Standing Comments toe touch test= reach mid vega , no pain but stretching sensation at lumbar noted. regine sign noted lateral flexion to R= increased R buttock pain lateral flexion to L= no increased buttock pain R quadrant test= significant increased R buttock pain L quadrant test= no increased pain Hip Goniometric Range of Motion Hip Right Active Hip ROM WFL Yes Testing Position Supine Straight Leg Raise 90 Comments PSLR = increased R neural tension noted from buttock to posterior thigh Left Active Hip ROM WFL Yes Testing Position Supine Straight Leg Raise 90 Comments PSLR =90 PT-OP-M Strength Start: 12/16/20 16:11 Freq: Status: Active Protocol: Document 12/16/20 16:00 HH (Rec: 12/16/20 16:30 HH [email or web address]) Hip Strength Hip Manual Muscle Testing Right Flexion (L2) 5 Normal Extension (S1) 4 Good Abduction 4 Good Adduction 5 Normal Left Flexion (L2) 5 Normal Extension (S1) 5 Normal Abduction 5 Normal Adduction 5 Normal Knee Strength Knee Manual Muscle Testing Right Flexion (S2) 5 Normal Extension (L3) 5 Normal Left Flexion (S2) 5 Normal Extension (L3) 5 Normal Ankle/Foot Strength Ankle and Foot Manual Muscle Testing Right Dorsiflexion (L4) 5 Normal Plantarflexion (S1) 5 Normal Inversion 5 Normal Eversion (S1) 5 Normal Left Dorsiflexion (L4) 5 Normal Plantarflexion (S1) 5 Normal Inversion 5 Normal Eversion (S1) 5 Normal PT-OP-Q Treatments Start: 12/16/20 16:11 Freq: Status: Active Protocol: Document 12/24/20 08:15 AMB (Rec: 12/24/20 15:21 AMB [email or web address]) Therapeutic Exercises Supine Exercises piriformis Side right Reps/Minutes 15 sec hold x 5 Comments for HEP knee to chest Side bilateral Reps/Minutes 15 sec hold x5 Comments for HEP tennis ball release Supine Exercise Name at R buttock Side right Comments for hEP Sidelying Exercises open book Reps/Minutes 15sec hold x5 Comments for HEP Other Exercises 2 Other Exercise Name catcow Reps/Minutes 10 Comments difficulty with lumbar mobility 1 Other Exercise Name lori pose with sidebend Reps/Minutes 30x3 Comments HEP Manual Therapy Treatment Soft Tissue Mobilization 1 Body Location R gluteals, paraspinals, piriformis Mobilization Type Myofascial Release Intensity/Depth Moderate Body Position Sidelying Manual Traction R hip Comments 10 sec hold x5 pt reports buttock pain relief PT-OP-T Assessment and Plan Start: 12/16/20 16:11 Freq: Status: Active Protocol: Document 12/24/20 08:15 AMB (Rec: 12/24/20 15:21 AMB [email or web address]) Physical Therapy Assessment Goals hep Impairment pt does not have a HEP Short Term Goal (STG) pt will be able to complete daily HEP independently and safely STG Duration 4 weeks neuro-sign Impairment pt has tingling numbness sensation to lateral calf and dorsal of r foot Short Term Goal (STG) pt will show improved neuro sign by not having tingling / numbness sensation to lateral calf and dorsal aspect of the R foot STG Duration 8 weeks activity tolerance Impairment pt is unable to walk >1/4 mile or standing >1 hour d/t pain Short Term Goal (STG) pt will show improved activity tolerance to be able to walk >1/2 mile without increase symptoms STG Duration 4 weeks Lens Edger Goal (LTG) pt will show improved activity tolerance to be able to walk >1 mile without increase symptoms LTG Duration 8 weeks owestry Impairment pt scores 26 on Owestry Short Term Goal (STG) pt will show improved overall quality of life by scoring < 20 on Owestry STG Duration 4 weeks Lens Edger Goal (LTG) pt will show improved overall quality of life by scoring < 15 on Owestry LTG Duration 8 weeks Assessment Summary Assessment Pt has decreased pain after manual therapy and exercise, did need to modify open book to avoid shoulder pain. Pt continues to have significant postural changes that impact his pain. Physical Therapy Plan Frequency and Duration Frequency of Treatment 2x/Week Duration of Treatment 8 weeks Plan of Care Start Date 12/16/20 Plan of Care End Date 02/15/21 Therapeutic Interventions Therapeutic Interventions Aquatic Therapy,Balance Training,Gait Training,Home Exercise Program,Joint Mobilizations,Manual Therapy, Neuromuscular Re-education, Patient/Caregiver Education, Self-Care/Home Management,Soft Tissue Mobilization,Taping, Therapeutic Activities, Therapeutic Exercises Modalities Cold Pack/Ice Massage,Electric Stimulation,Hot Packs, Infrared Therapy,Traction- Mechanical,Ultrasound Next Visit Focus/Plan Next Note Type Treatment Note Next Visit Plan review tennis ball release, trunk flexion stretch start hip traction piriformis stretch open book stretch check R calf strength postural correction
--- NOTE | 2020-12-27 14:24 | PT.OTN ---
Current Diagnoses Sciatica, right side (12/27/20) Physical Therapy Treatment Note PT-OP-A Visit Information Start: 12/16/20 16:11 Freq: Status: Active Protocol: Document 12/27/20 13:30 AMB (Rec: 12/27/20 14:24 AMB [email or web address]) Out-Patient Physical Therapy Visit Information Visit Information Visit Type Treatment Note Visit Start Time 13:30 Visit Stop Time 14:15 Total Visit Minutes 45 Visit Number 09/29 PT-OP-B Current Condition Start: 12/16/20 16:11 Freq: Status: Active Protocol: Document 12/16/20 16:00 HH (Rec: 12/16/20 16:30 HH [email or web address]) Current Condition History of Current Condition Onset Date early November Current Complaints R sciatica, difficulty in walking and standing. History of Current Condition Leland is a 60 yo male here for his new onset of R sciatic started in November. He stated his pain located mostly at R buttock but with tingling and numbness towards lateral calf and dorsal aspect of the foot. His pain worse with standing and walking but immediately better with bend over/ sitting position. Symptoms have been 10-15 % better since he went to see Dr. Beatty who gave him some anti-inflammatory medication. Pt also went to see his chiropractor but no positive result. Pt is very active who has a big yard to manage. 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 Prior Treatments and Tests failed chiropractic treatment anti-inflammatory medication with good pain control Future Testing and Treatments Planned Dr. Beatty stated further imaging / nerve study might be needed if conservative tx failed. PT-OP-C Subjective Start: 12/16/20 16:11 Freq: Status: Active Protocol: Document 12/27/20 13:30 AMB (Rec: 12/27/20 14:24 AMB [email or web address]) OP-PT Subjective Patient Comments Patient Comments Busy this week, but feels like improving. PT-OP-D Balance Start: 12/16/20 16:11 Freq: Status: Active Protocol: Document 12/16/20 16:00 HH (Rec: 12/16/20 16:30 HH [email or web address]) Balance Tests Single Limb Standing Single Limb- Right 22, 10 s with UE out, toe out Single Limb- Left 40, 45s PT-OP-F Manual Assessment Start: 12/16/20 16:11 Freq: Status: Active Protocol: Document 12/16/20 16:00 HH (Rec: 12/16/20 16:30 [email or web address]) Manual Assessments Soft Tissue Assessment Soft Tissue Mobility Assessment significant hypertonicity with pain on piriformis and gluteal muscles PT-OP-G Mobility & Gait Start: 12/16/20 16:11 Freq: Status: Active Protocol: Document 12/16/20 16:00 HH (Rec: 12/16/20 16:30 [email or web address]) OP Gait Assessment Gait Deviations General Gait Pattern Antalgic,Decreased Stride Length,Decreased Feet Clearance,Lateral Trunk Lean Comments Gait Comments +ve R trendelenburg sign, R toe out gait (ER tibia) PT-OP-H Neuro Start: 12/16/20 16:11 Freq: Status: Active Protocol: Document 12/16/20 16:00 HH (Rec: 12/16/20 16:30 [email or web address]) Sensation Evaluation Gross Sensation Gross Sensation Right LE Impaired Sensation Description Numbness,Tingling Dermatome Impairments L5 Comments Summary Comments tingling and numbness from lateral aspect of lower leg to dorsal aspect of R foot. Deep Tendon Reflex & Clonus Assessment Deep Tendon Reflex Bilateral Achilles Deep Tendon Reflex 2+ Normal Bilateral Patellar Deep Tendon Reflex 1+ Diminished PT-OP-J Posture/Palpation/Skin Start: 12/16/20 16:11 Freq: Status: Active Protocol: Document 12/16/20 16:00 HH (Rec: 12/16/20 16:30 [email or web address]) Posture Evaluation Position Standing Weight Distribution Weight Shifted Right Knee Posture (R) Genu Valgus,(R) Ext. Tibial Torsion Ankle/Foot Posture (R) Pronated,(R) Forefoot Abducted Foot Arch (R) Low Arch Comments Posture Comments standing posture= R lateral weight shift on R with increased pain pain decreased with assisted lateral weight shift to L PT-OP-K Range of Motion Start: 12/16/20 16:11 Freq: Status: Active Protocol: Document 12/16/20 16:00 HH (Rec: 12/16/20 16:30 [email or web address]) Lumbar Spine Range of Motion Lumbar Spine Active Degrees Testing Position Standing Comments toe touch test= reach mid vega , no pain but stretching sensation at lumbar noted. regine sign noted lateral flexion to R= increased R buttock pain lateral flexion to L= no increased buttock pain R quadrant test= significant increased R buttock pain L quadrant test= no increased pain Hip Goniometric Range of Motion Hip Right Active Hip ROM WFL Yes Testing Position Supine Straight Leg Raise 90 Comments PSLR = increased R neural tension noted from buttock to posterior thigh Left Active Hip ROM WFL Yes Testing Position Supine Straight Leg Raise 90 Comments PSLR =90 PT-OP-M Strength Start: 12/16/20 16:11 Freq: Status: Active Protocol: Document 12/16/20 16:00 HH (Rec: 12/16/20 16:30 HH [email or web address]) Hip Strength Hip Manual Muscle Testing Right Flexion (L2) 5 Normal Extension (S1) 4 Good Abduction 4 Good Adduction 5 Normal Left Flexion (L2) 5 Normal Extension (S1) 5 Normal Abduction 5 Normal Adduction 5 Normal Knee Strength Knee Manual Muscle Testing Right Flexion (S2) 5 Normal Extension (L3) 5 Normal Left Flexion (S2) 5 Normal Extension (L3) 5 Normal Ankle/Foot Strength Ankle and Foot Manual Muscle Testing Right Dorsiflexion (L4) 5 Normal Plantarflexion (S1) 5 Normal Inversion 5 Normal Eversion (S1) 5 Normal Left Dorsiflexion (L4) 5 Normal Plantarflexion (S1) 5 Normal Inversion 5 Normal Eversion (S1) 5 Normal PT-OP-Q Treatments Start: 12/16/20 16:11 Freq: Status: Active Protocol: Document 12/27/20 13:30 AMB (Rec: 12/27/20 14:24 AMB [email or web address]) Therapeutic Exercises Supine Exercises 1 Supine Exercise Name TrA stabilization with supine march Reps/Minutes 10 piriformis Side right Reps/Minutes 15 sec hold x 5 Comments for HEP Sidelying Exercises 1 Sidelying Exercise Name clamshell Side right Reps/Minutes 2x15 open book Reps/Minutes 15sec hold x5 Comments for HEP Other Exercises 2 Other Exercise Name catcow Reps/Minutes 10 Comments difficulty with lumbar mobility 1 Other Exercise Name lori pose with sidebend Reps/Minutes 30x3 Comments HEP Manual Therapy Treatment Soft Tissue Mobilization 1 Body Location R gluteals, paraspinals, piriformis Mobilization Type Myofascial Release Intensity/Depth Moderate Body Position Sidelying Comments Rolling Manual Traction R hip Comments 10 sec hold x5 pt reports buttock pain relief PT-OP-T Assessment and Plan Start: 12/16/20 16:11 Freq: Status: Active Protocol: Document 12/27/20 13:30 AMB (Rec: 12/27/20 14:24 AMB [email or web address]) Physical Therapy Assessment Goals hep Impairment pt does not have a HEP Short Term Goal (STG) pt will be able to complete daily HEP independently and safely STG Duration 4 weeks neuro-sign Impairment pt has tingling numbness sensation to lateral calf and dorsal of r foot Short Term Goal (STG) pt will show improved neuro sign by not having tingling / numbness sensation to lateral calf and dorsal aspect of the R foot STG Duration 8 weeks activity tolerance Impairment pt is unable to walk >1/4 mile or standing >1 hour d/t pain Short Term Goal (STG) pt will show improved activity tolerance to be able to walk >1/2 mile without increase symptoms STG Duration 4 weeks Usp Goal (LTG) pt will show improved activity tolerance to be able to walk >1 mile without increase symptoms LTG Duration 8 weeks owestry Impairment pt scores 26 on Owestry Short Term Goal (STG) pt will show improved overall quality of life by scoring < 20 on Owestry STG Duration 4 weeks Usp Goal (LTG) pt will show improved overall quality of life by scoring < 15 on Owestry LTG Duration 8 weeks Assessment Summary Assessment At end of appt, pt denies current pain with standing, did educate in posterior pelvic tilt and TA stabilization in standing to avoid excessive lumbar extension. Does continue to feel sx with SLR. Physical Therapy Plan Frequency and Duration Frequency of Treatment 2x/Week Duration of Treatment 8 weeks Plan of Care Start Date 12/16/20 Plan of Care End Date 02/15/21 Therapeutic Interventions Therapeutic Interventions Aquatic Therapy,Balance Training,Gait Training,Home Exercise Program,Joint Mobilizations,Manual Therapy, Neuromuscular Re-education, Patient/Caregiver Education, Self-Care/Home Management,Soft Tissue Mobilization,Taping, Therapeutic Activities, Therapeutic Exercises Modalities Cold Pack/Ice Massage,Electric Stimulation,Hot Packs, Infrared Therapy,Traction- Mechanical,Ultrasound Next Visit Focus/Plan Next Note Type Treatment Note Next Visit Plan Continue postural correction, manual therapy
--- NOTE | 2020-12-31 16:20 | PT.OTN ---
Current Diagnoses Sciatica, right side (12/31/20) Physical Therapy Treatment Note PT-OP-A Visit Information Start: 12/16/20 16:11 Freq: Status: Active Protocol: Document 12/31/20 08:15 AMB (Rec: 12/31/20 09:02 AMB [id number]) Out-Patient Physical Therapy Visit Information Visit Information Visit Type Treatment Note Visit Start Time 08:15 Visit Stop Time 09:00 Total Visit Minutes 45 Visit Number 10/29 PT-OP-B Current Condition Start: 12/16/20 16:11 Freq: Status: Active Protocol: Document 12/16/20 16:00 HH (Rec: 12/16/20 16:30 HH [email or web address]) Current Condition History of Current Condition Onset Date early November Current Complaints R sciatica, difficulty in walking and standing. History of Current Condition Leland is a 60 yo male here for his new onset of R sciatic started in November. He stated his pain located mostly at R buttock but with tingling and numbness towards lateral calf and dorsal aspect of the foot. His pain worse with standing and walking but immediately better with bend over/ sitting position. Symptoms have been 10-15 % better since he went to see Dr. Beatty who gave him some anti-inflammatory medication. Pt also went to see his chiropractor but no positive result. Pt is very active who has a big yard to manage. 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 Prior Treatments and Tests failed chiropractic treatment anti-inflammatory medication with good pain control Future Testing and Treatments Planned Dr. Beatty stated further imaging / nerve study might be needed if conservative tx failed. PT-OP-C Subjective Start: 12/16/20 16:11 Freq: Status: Active Protocol: Document 12/31/20 08:15 AMB (Rec: 12/31/20 16:20 AMB [email or web address]) OP-PT Subjective Patient Comments Patient Comments Pt had pain walking .5 miles over the weekend, it was in the afternoon which is his most painful time. He has been working on painting his house and that has also flared his pain. PT-OP-D Balance Start: 12/16/20 16:11 Freq: Status: Active Protocol: Document 12/16/20 16:00 HH (Rec: 12/16/20 16:30 HH [email or web address]) Balance Tests Single Limb Standing Single Limb- Right 22, 10 s with UE out, toe out Single Limb- Left 40, 45s PT-OP-F Manual Assessment Start: 12/16/20 16:11 Freq: Status: Active Protocol: Document 12/16/20 16:00 HH (Rec: 12/16/20 16:30 [email or web address]) Manual Assessments Soft Tissue Assessment Soft Tissue Mobility Assessment significant hypertonicity with pain on piriformis and gluteal muscles PT-OP-G Mobility & Gait Start: 12/16/20 16:11 Freq: Status: Active Protocol: Document 12/16/20 16:00 HH (Rec: 12/16/20 16:30 [email or web address]) OP Gait Assessment Gait Deviations General Gait Pattern Antalgic,Decreased Stride Length,Decreased Feet Clearance,Lateral Trunk Lean Comments Gait Comments +ve R trendelenburg sign, R toe out gait (ER tibia) PT-OP-H Neuro Start: 12/16/20 16:11 Freq: Status: Active Protocol: Document 12/16/20 16:00 HH (Rec: 12/16/20 16:30 [email or web address]) Sensation Evaluation Gross Sensation Gross Sensation Right LE Impaired Sensation Description Numbness,Tingling Dermatome Impairments L5 Comments Summary Comments tingling and numbness from lateral aspect of lower leg to dorsal aspect of R foot. Deep Tendon Reflex & Clonus Assessment Deep Tendon Reflex Bilateral Achilles Deep Tendon Reflex 2+ Normal Bilateral Patellar Deep Tendon Reflex 1+ Diminished PT-OP-J Posture/Palpation/Skin Start: 12/16/20 16:11 Freq: Status: Active Protocol: Document 12/16/20 16:00 HH (Rec: 12/16/20 16:30 [email or web address]) Posture Evaluation Position Standing Weight Distribution Weight Shifted Right Knee Posture (R) Genu Valgus,(R) Ext. Tibial Torsion Ankle/Foot Posture (R) Pronated,(R) Forefoot Abducted Foot Arch (R) Low Arch Comments Posture Comments standing posture= R lateral weight shift on R with increased pain pain decreased with assisted lateral weight shift to L PT-OP-K Range of Motion Start: 12/16/20 16:11 Freq: Status: Active Protocol: Document 12/16/20 16:00 HH (Rec: 12/16/20 16:30 HH [email or web address]) Lumbar Spine Range of Motion Lumbar Spine Active Degrees Testing Position Standing Comments toe touch test= reach mid vega , no pain but stretching sensation at lumbar noted. regine sign noted lateral flexion to R= increased R buttock pain lateral flexion to L= no increased buttock pain R quadrant test= significant increased R buttock pain L quadrant test= no increased pain Hip Goniometric Range of Motion Hip Right Active Hip ROM WFL Yes Testing Position Supine Straight Leg Raise 90 Comments PSLR = increased R neural tension noted from buttock to posterior thigh Left Active Hip ROM WFL Yes Testing Position Supine Straight Leg Raise 90 Comments PSLR =90 PT-OP-M Strength Start: 12/16/20 16:11 Freq: Status: Active Protocol: Document 12/16/20 16:00 HH (Rec: 12/16/20 16:30 HH [email or web address]) Hip Strength Hip Manual Muscle Testing Right Flexion (L2) 5 Normal Extension (S1) 4 Good Abduction 4 Good Adduction 5 Normal Left Flexion (L2) 5 Normal Extension (S1) 5 Normal Abduction 5 Normal Adduction 5 Normal Knee Strength Knee Manual Muscle Testing Right Flexion (S2) 5 Normal Extension (L3) 5 Normal Left Flexion (S2) 5 Normal Extension (L3) 5 Normal Ankle/Foot Strength Ankle and Foot Manual Muscle Testing Right Dorsiflexion (L4) 5 Normal Plantarflexion (S1) 5 Normal Inversion 5 Normal Eversion (S1) 5 Normal Left Dorsiflexion (L4) 5 Normal Plantarflexion (S1) 5 Normal Inversion 5 Normal Eversion (S1) 5 Normal PT-OP-Q Treatments Start: 12/16/20 16:11 Freq: Status: Active Protocol: Document 12/31/20 08:15 AMB (Rec: 12/31/20 16:20 AMB [email or web address]) Therapeutic Exercises Supine Exercises 1 Supine Exercise Name TrA stabilization with supine march Reps/Minutes 10 piriformis Side right Reps/Minutes 15 sec hold x 5 Comments for HEP Sidelying Exercises 1 Sidelying Exercise Name clamshell Side right Reps/Minutes 2x15 Other Exercises 3 Other Exercise Name pigeon stretch Reps/Minutes 30x2 1 Other Exercise Name lori pose with sidebend Reps/Minutes 30x3 Comments HEP Manual Therapy Treatment Soft Tissue Mobilization 1 Body Location R gluteals, paraspinals, piriformis Mobilization Type Myofascial Release Intensity/Depth Moderate Body Position Sidelying Comments Rolling Manual Traction R hip Comments 10 sec hold x5 pt reports buttock pain relief PT-OP-T Assessment and Plan Start: 12/16/20 16:11 Freq: Status: Active Protocol: Document 12/31/20 08:15 AMB (Rec: 12/31/20 16:20 AMB [email or web address]) Physical Therapy Assessment Goals hep Impairment pt does not have a HEP Short Term Goal (STG) pt will be able to complete daily HEP independently and safely STG Duration 4 weeks neuro-sign Impairment pt has tingling numbness sensation to lateral calf and dorsal of r foot Short Term Goal (STG) pt will show improved neuro sign by not having tingling / numbness sensation to lateral calf and dorsal aspect of the R foot STG Duration 8 weeks activity tolerance Impairment pt is unable to walk >1/4 mile or standing >1 hour d/t pain Short Term Goal (STG) pt will show improved activity tolerance to be able to walk >1/2 mile without increase symptoms STG Duration 4 weeks Fpc Goal (LTG) pt will show improved activity tolerance to be able to walk >1 mile without increase symptoms LTG Duration 8 weeks owestry Impairment pt scores 26 on Owestry Short Term Goal (STG) pt will show improved overall quality of life by scoring < 20 on Owestry STG Duration 4 weeks Fpc Goal (LTG) pt will show improved overall quality of life by scoring < 15 on Owestry LTG Duration 8 weeks Assessment Summary Assessment Pt continues to have pain with extended standing, did spend time on body mechanics today to avoid flaring pain, did ask pt if he could lie down in the afternoon when pain really increases, but pt hesitant to take the time to do so. Physical Therapy Plan Next Visit Focus/Plan Next Note Type Treatment Note Next Visit Plan Continue postural correction, manual therapy
--- NOTE | 2021-01-27 13:33 | PT-OP ANOTE ---
called pt today and he stated he has been doing very well. No sciatica at this point with the help of tennis ball release and use of ice. Pt will have a f/u with surgeon within a month and he agreed to discuss further POC after that appointment. Will call him again in a few weeks.
--- NOTE | 2021-02-11 11:49 | PT.OPDS ---
Current Diagnoses Sciatica, right side (12/31/20) Visit Care Team Role Provider Type Tushar Beatty MD Attending Provider Physician Family Provider Primary Care Provider Referring Provider Specialty: Internal Medicine Address: [address] [place] [address], [address], [place], [address] Email: [email or web address] Visit Number Visit Number 10/29 Discharge Summary PT-OP-T Assessment and Plan Start: 12/16/20 16:11 Freq: Status: Active Protocol: Document 02/11/21 11:48 (Rec: 02/11/21 11:49 [email or web address]) Physical Therapy Plan Discharge Physical Therapy Discharge Reasons Goals Met Discharge Comments Called pt and he stated his surgeon pleased with his result from PT so far. He hasnt had flare up of sciatica at this point. He currently thinks he does not need the PT and agreed to be DC today.
== END 2021-02-11 13:21 | disposition home or self-care (01) ==
LOC: PHYS 08:15
PROVIDERS: Family Provider Internal Medicine; PCP Internal Medicine; Referring Provider Internal Medicine; Visit Provider Internal Medicine
DX: M54.31 Sciatica, right side (principal)
CPT/HCPCS: 97110; 97140; 97162

== ENCOUNTER → 2021-02-03 15:04 | Outpatient (CLI) | payer OTHER, SELFPAY ==
[2021-02-03 17:54] LABS: Prostate Specific Antigen 2.83 ng/mL (0.10-4.00)
== END ==
PROVIDERS: Family Provider Internal Medicine; PCP Internal Medicine; Referring Provider Specialist; Visit Provider Specialist
DX: N40.1 Benign prostatic hyperplasia with lower urinary tract symptoms (principal); N13.8 Other obstructive and reflux uropathy; R97.20 Elevated prostate specific antigen [PSA]
CPT/HCPCS: 36415; 84153

== ENCOUNTER → 2022-04-06 10:00 | Outpatient (CLI) | payer OTHER, SELFPAY | PROVIDERS: Family Provider Internal Medicine; PCP Internal Medicine; Visit Provider Registered Nurse | DX: R39.15 Urgency of urination (principal) | CPT/HCPCS: 87077; 87086; 87186 ==

== ENCOUNTER → 2022-05-19 09:49 | Outpatient (CLI) | payer OTHER, SELFPAY | PROVIDERS: Family Provider Internal Medicine; PCP Internal Medicine; Referring Provider Specialist; Visit Provider Specialist | DX: R97.20 Elevated prostate specific antigen [PSA] (principal) | CPT/HCPCS: 36415; 84153 ==

== ENCOUNTER 2022-08-24 08:22 | Day surgery (SDC) | payer OTHER, SELFPAY ==
[2022-08-13 09:32] VITALS: BMI 24.4
[2022-08-24] VITALS (15 sets, daily range): BP systolic 104–141; BP diastolic 59–75; PULSE 14–65; RESP 12–19; TEMP 36.4–36.9; O2SAT 93–100; BMI 24.0
--- NOTE | 2022-08-24 | PATH_ITS ---
[facility] Accession Number: [id number] No. of containers..01 Tissue . 01 Material submitted: . prostate - PROSTATE CHIPS . 01 Clinical history: . TRANSURETHRAL RESECTION PROSTATE . 01 Diagnosis: Prostate Gland, Transurethral Resection: Glandular and stromal hyperplasia. Negative for neoplasia. MRV 08/27/2022 1433 Local . 01 Electronically signed: . Jany Valero MD, Pathologist NPI- [id number] . 01 Gross description: . The specimen is received in formalin labeled with the patient's name, , and prostate chips, and consists of multiple fragments of carroll rubbery tissue weighing 7 grams and aggregating to 5.1 x 3.8 x 1.2 cm. No discrete lesions are identified, and the specimen is submitted entirely in cassettes A1-A5. ([id number]) /MONTY 08/25/2022 0944 Local . 01 Pathologist provided ICD-10: N32.0 . 01 CPT . 927910 Specimen Comment: A courtesy copy of this report has been sent to [phone] Performed at: 01 [facility] [address] [place] [address], [place], [place] [id number] MD Regan Romo MD Phone: [phone]
--- NOTE | 2022-08-24 07:48 | PM.PREOP ---
Pre-operative Note COVID-19 Criteria for continued procedure: Expected advancement of disease process, Possibility delay results in more complex future surgery or treatment, Delay expected to result in less-positive ultimate med/surg outcome and Non-surgical alternatives not available or appropriate per current SOC Interval Note History & Physical reviewed/Exam performed by Physician: Yes Changes to H&P: No
[2022-08-24] MEDS: ACETAMINOPHEN 325 MG TABLET 975 MG PO (08:55)
[2022-08-24] MEDS: LACTATED RINGERS 1,000 ML 42 ML IV (08:56)
[2022-08-24 09:25] LABS: COVID19 -Nasal RAPID Negative (Negative)
[2022-08-24] MEDS: AMPICILLIN/SULBACTAM 3 GM 3 GM in SODIUM CHLORIDE 0.9% 100 ML IV (09:33)
[2022-08-24] MEDS: GENTAMICIN 160 MG in SODIUM CHLORIDE 0.9% 100 ML 104 MG IV (09:40)
[2022-08-24] MEDS: TRANEXAMIC ACID 1,000 MG in SODIUM CHLORIDE 0.9% 100 ML 200 MG IV (09:40)
--- NOTE | 2022-08-24 09:43 | SUR.OPER ---
Lithotomy on padded OR bed, head on pillow, left arm secured on padded arm boards at <90 degrees abduction and right arm tucked with gel pad and draw sheet. Legs secured in padded yellow fins stirrups.
--- NOTE | 2022-08-24 10:11 | P.OP_ITS ---
Operative Date/Time/Diagnoses Date of procedure: 08/24/22 Time of procedure: 10:11 Pre-op diagnosis: 1. Urinary retention. 2. Bladder outlet obstruction. Post-op diagnosis: same Procedure & Clinicians Procedure: 1. Transurethral resection of prostate. Same procedure as scheduled: Yes Indications: 1. Urinary retention. 2. Bladder outlet obstruction. Surgeon: Ruth Mas Click Yes if Unassisted: Yes Anesthesia Type: General Operative Notes Findings: 1. Urethra-normal caliber without annular stricture or lesion. 2. External sphincter coapted with normal overlying urothelium. 3. Prostate-3.5-4 cm length with moderately obstructing lateral lobe hyperplasia and a high median bar. 4. Bladder-2+ trabeculation and normal ureteral orifices bilaterally. No evidence of stone, neoplasm, or diverticulum. Closure Type: not applicable Specimen(s): other (TUR chips.) Applied: catheter (Twenty-[address] hematuria catheter.) Estimated Blood Loss (mL): 10 Blood products transfused: none Procedure in detail: The patient was positioned supine was administered general anesthesia. He was then repositioned semi-lithotomy lower abdomen, genitalia, and groin were then prepped and draped sterile fashion. The resectoscope was then advanced the lower urinary tract under direct visualization with the findings as described above. Next, the working element was positioned within the TUR sheath fitted with a resecting loop. TUR incisions were then made at the 11:00 a.m. in the 1 o'clock position from bladder neck to a point at the level of the verumontanum. The intervening tissue was then resected anteriorly. In no point was resection taken deeper than the surgical capsule nor further than the verumontanum. Next, both the right and left lateral lobes were successfully resected beginning anteriorly and progressing posteriorly. Finally, the median bar was taken down again, with resection not taken deeper then surgical capsule nor more distal than the verumontanum. Both right, and left most apical lateral tissue left on resected purposefully. Hemostasis was obtained with the cautery loop. All chips and clots were then removed from the bladder and prostate fossa using the [employer] evacuator as well as mechanically with the TUR loop under direct visualization. The bladder was then left partially filled and the resectoscope was removed. A [address] catheter was then positioned in the bladder using a catheter guide. The balloon was inflated to 30 cc. The catheter was irrigated numerous times with a 60 cc catheter-tip syringe with excellent patency. Normal saline continuous irrigation was then connected to the inflow and gravity drainage to the outflow. The patient was then repositioned in supine, was awakened, transferred to [facility], and transported recovery in stable condition. Complications: none Post-operative Condition: stable Disposition: PACU Plan for aftercare: Admit outpatient with the bed on continuous bladder irrigation.
[2022-08-24 10:28] LABS: Appearance Urine UA CLEAR; Bilirubin Urine UA NEGATIVE (NEGATIVE); Color Urine UA YELLOW; Glucose Urine UA NEGATIVE (Negative); Ketones Urine UA NEGATIVE (NEGATIVE); Leukocyte Esterase Urine UA NEGATIVE (NEGATIVE); Nitrite Urine UA NEGATIVE (Negative); Occult Blood Urine UA 1+ (Negative); Protein Urine UA NEGATIVE (Negative); Urobilinogen Urine UA 0.2 E.U./dL (0.2)
[2022-08-24 10:36] LABS: Amorphous Sediment Urine 2+; Bacteria Urine None Seen; Culture Indicated Urine Cult Not Indicated; RBC Urine 1-5/HPF (0-5/HPF); Transitional Epi Cells Urine 1-5/HPF (0-5/HPF); WBC Urine 0-1/HPF (0-5/HPF)
[2022-08-24] MEDS: LACTATED RINGERS 1,000 ML 120 ML IV (10:52)
[2022-08-24] MEDS: ACETAMINOPHEN 325 MG TABLET 650 MG PO (20:34)
[2022-08-24] MEDS: TAMSULOSIN 0.4 MG CAPSULE 0.8 MG PO (20:35)
[2022-08-25 04:33] VITALS: BP 101/62; PULSE 56; RESP 17; TEMP 36.6; O2SAT 95
--- NOTE | 2022-08-25 07:52 | PM.PN.1 ---
Subjective Subjective Date Patient Seen: 08/25/22 Time Patient Seen: 07:05 Interval history: The patient is postoperative day 1 status post Transurethral resection of prostate for urinary retention. He denies postoperative complaints. He is tolerating general diet. He denies pain. He is passing flatus. Exam Vital Signs (past 8 hours): - 08/24/22 23:59 08/25/22 04:33 Temperature 98 F 98 F Pulse Rate 58 L 56 L Respiratory Rate 19 17 Blood Pressure 113/63 101/62 Pulse Oximetry 96 95 Oxygen Flow Rate 0 0 Oxygen Delivery Method Room Air Oxygen Flow Rate 0 Narrative Exam Narrative: Patient is sitting upright in bed in no acute distress. Abdomen-scaphoid soft nontender. Genitalia-indwelling Mar catheter with clear, straw-colored output no clots or blood. Objective Labs Labs: Laboratory Results - last 24 hr 08/24/22 08/24/22 08:35 09:35 Urine Color Yellow Urine Appearance Clear Urine pH 6.0 Ur Specific [place] 1.020 Urine Protein Negative Urine Glucose (UA) Negative Urine Ketones Negative Urine Occult Blood 1+ H Urine Nitrate Negative Urine Bilirubin Negative Urine Urobilinogen 0.2 Ur Leukocyte Esterase Negative Urine RBC 1-5/hpf Urine WBC 0-1/hpf Ur Transition Epith Cell 1-5/hpf Amorphous Sediment 2+ Urine Bacteria None seen Ur Culture Indicated? Cult not indicated SARS-CoV-2 (PCR) Negative PFSH Medical History BPH w urinary obs/LUTS COPD (chronic obstructive pulmonary disease) History of elevated PSA History of UTI Incomplete bladder emptying Self-catheterizes urinary bladder Urinary retention Surgical History H/O wrist surgery (1976) History of ankle surgery (1998) Hx of knee surgery (1997) Social History household members: spouse Smoking Status: Former smoker alcohol intake: current Assessment & Plan Assessment & Plan narrative: Assessment: 1. Stable postop day 1 status post TURP. 2. Pathology pending. 3. Indwelling Mar catheter. Plan: 1. Discharge home today. 2. Follow-up surgical pathology report when final as outpatient. 3. Outpatient supervised voiding trial will be scheduled through the urology clinic to be conducted 08/26/2022. Time Spent With Patient Critical Care time: I spent a total of [] minutes of critical care time on this patient's care today; this time is exclusive of procedural time.
[2022-08-25 08:00] VITALS: BP 99/64; PULSE 55; RESP 17; TEMP 36.7; O2SAT 95
--- NOTE | 2022-08-25 08:53 | CM.DANOTE ---
DCP: Case received, EMR reviewed and met with patient. Introduced self and role. Was able to obtain information regarding patient's baseline activity status prior to surgery. DCP assessment completed with information currently available. Patient is a 62 year old male who admitted yesterday morning to the care of his urology provider. PCP: Dr. Beatty. Payer: confirmed: [facility]. Patient came to the hospital via private vehicle for a surgical procedure. Patient had transurethral resection of the prostate. Patient has history of urinary retention. Met with patient in his room. He was sitting up in bed having breakfast. He is alert and oriented, pleasant. Confirmed that he resides with spouse here in [place]. 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 P: Patient has discharge orders for home today. He will discharge with his squires in place, and will have it removed at his urology appointment for follow up. 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 No History Provided By Patient,Medical Record Household Members spouse Type of transporation used prior to Drives own vehicle admit Independent with ADL's Yes Is patient alert and oriented? Yes Caregiver for Another No Barriers to Discharge No Discharge Plan Home Transportation Arrangement Spouse Referrals Initiated None needed Whiteboard Updated in Patient Room with Yes name and ext. # of Lecturer In Marketing Review Status In Process Next Review Type Continued Stay Review Pre-Anesthesia Assessment Start: 08/13/22 09:32 Freq: Status: Complete Protocol: Document 08/13/22 09:32 CAB (Rec: 08/13/22 09:40 [facility] [id number]) Pre-Anesthesia Assessment Preferred Name Pat Patient Information Reviewed Via Chart Review Primary Care Provider Tushar Beatty Seen Specialist in Last 12 Months Yes Specialist Seen Urologist Primary Language Sudanese Preferred Language Sudanese Knife Sharpener Required No Height 5 ft 10 in Weight 170 lb 1.986 oz Body Mass Index (BMI) 24.4 Hearing Ability Normal Visual Assist Glasses Dentition Type Teeth, Natural Present Hx Anesthesia Reactions No Hx Family Anesthesia Reaction No Hx Malignant Hyperthermia No Hx Blood Transfusions No Hx Blood Transfusion Reaction No Caustic Strength Inspector No alcohol intake current alcohol intake frequency 0-2 drinks per day Smoking Status Former smoker how long ago did patient quit smoking 2004 Substance Use Type marijuana Patient is completely paralyzed or No completely immobile Mental Status Oriented to own ability Hx Sleep Apnea No CPAP/BIPAP use not prescribed Currently Taking a Beta Miguel No Anti-Coagulant Therapy No Cardiac Testing No Hx Pacemaker/ICD No Pacemaker Rep Required? No Cardiac Clearance Received Not Applicable Bladder Pattern Retention Hx Urinary Self Catheterization Yes Diabetes No Presence of External or Internal Medical Yes: Hardware in rt leg, Devices Marital Status Lives With spouse Patient Discharge Plan Description Return Home Advance Directives? No
[2022-08-25] MEDS: ASCORBIC ACID 500 MG TABLET PO (09:01)
[2022-08-25] MEDS: ACETAMINOPHEN 325 MG TABLET 650 MG PO (09:01)
--- NOTE | 2022-08-25 10:18 | PC.NURSE ---
CBI is pale pink, patient denies pain/discomfort. d/c orders received, plans for irrigation to be dc'd and changed to a leg bag. education provided to patient for the leg bag, changing to a long bag at [facility], and to monitor for urine back flow. patient states he understands the d/c instructions.
[2022-08-25 10:33] VITALS: BP 108/67; PULSE 67
--- NOTE | 2022-08-25 11:55 | PC.NURSE ---
d/c paperwork was reviewed w/ patient and . he was getting out of the bathroom and headed to the large recliner chair; and had his shoes in hand, went to sit down on edge of chair and slid down onto his bottom. hopped up immediately w/o assistance. assessed for pain /injury, ROM wnl. patient denies pain/discomfort. i am so eager to get out of here CARE GIVER & spouse were also in the room w/ patient and observed the attempted sit down. VS obtained, 108/66. pulse 66, spo2 99 on RA. temp 98. fall assessment completed. patient left floor shortly after assessment, 1100AM. see dc.
== END 2022-08-25 11:00 | disposition home or self-care (01) ==
LOC: OR 08:22 → AC 08:24
PROVIDERS: Family Provider Internal Medicine; PCP Internal Medicine; Referring Provider Specialist; Visit Provider Specialist
PROC: 0VT08ZZ Resection of Prostate, Via Natural or Artificial Opening Endoscopic (ICD-10-PCS; CPT 52601; principal; 2022-08-24 10:15)
DX: N40.1 Benign prostatic hyperplasia with lower urinary tract symptoms (principal); N32.0 Bladder-neck obstruction; R33.9 Retention of urine, unspecified; Z20.822 Contact with and (suspected) exposure to COVID-19
CPT/HCPCS: 52601; 81001; 82962; 87635; C9803; J0295; J1100; J1170; J2405; J2704; J3010

== ENCOUNTER → 2022-09-28 12:59 | Outpatient (CLI) | payer OTHER, SELFPAY ==
[2022-08-24 08:24] VITALS: BMI 24.0
[2022-09-28 14:16] LABS: Prostate Specific Antigen 4.11 ng/mL (0.10-4.00)
== END ==
PROVIDERS: Family Provider Internal Medicine; PCP Internal Medicine; Referring Provider Specialist; Visit Provider Specialist
DX: R97.20 Elevated prostate specific antigen [PSA] (principal); R33.9 Retention of urine, unspecified
CPT/HCPCS: 36415; 84153; 87077; 87086; 87186

== ENCOUNTER → 2022-12-30 14:25 | Outpatient (CLI) | payer OTHER, SELFPAY ==
[2022-10-27 09:51] VITALS: BMI 24.0
== END ==
PROVIDERS: Family Provider Internal Medicine; PCP Internal Medicine; Visit Provider Specialist
DX: N40.1 Benign prostatic hyperplasia with lower urinary tract symptoms (principal); R33.9 Retention of urine, unspecified; N13.8 Other obstructive and reflux uropathy; Z87.440 Personal history of urinary (tract) infections
CPT/HCPCS: 87086

== ENCOUNTER → 2023-01-25 11:30 | Outpatient (CLI) | payer OTHER, SELFPAY ==
[2022-10-27 09:51] VITALS: BMI 24.0
[2023-01-25 13:02] LABS: Prostate Specific Antigen 1.84 ng/mL (0.10-4.00)
== END ==
PROVIDERS: Family Provider Internal Medicine; PCP Internal Medicine; Referring Provider Specialist; Visit Provider Specialist
DX: R97.20 Elevated prostate specific antigen [PSA] (principal)
CPT/HCPCS: 36415; 84153

== ENCOUNTER → 2023-03-03 10:49 | Outpatient (CLI) | payer OTHER, SELFPAY ==
[2022-10-27 09:51] VITALS: BMI 24.0
== END ==
PROVIDERS: Family Provider Internal Medicine; PCP Internal Medicine; Visit Provider Nurse Practitioner Family
DX: N39.0 Urinary tract infection, site not specified (principal)
CPT/HCPCS: 87077; 87086; 87186

== ENCOUNTER → 2023-03-30 12:59 | Outpatient (CLI) | payer OTHER, SELFPAY ==
[2022-10-27 09:51] VITALS: BMI 24.0
== END ==
PROVIDERS: Family Provider Internal Medicine; PCP Internal Medicine; Visit Provider Physician Assistant
DX: R30.0 Dysuria (principal)
CPT/HCPCS: 87077; 87086; 87186

== ENCOUNTER → 2023-08-03 11:17 | Outpatient (CLI) | payer MEDICARE, OTHER, SELFPAY ==
[2022-10-27 09:51] VITALS: BMI 24.0
== END ==
PROVIDERS: Family Provider Internal Medicine; PCP Internal Medicine; Visit Provider Specialist
DX: N40.1 Benign prostatic hyperplasia with lower urinary tract symptoms (principal); N13.8 Other obstructive and reflux uropathy; R33.9 Retention of urine, unspecified
CPT/HCPCS: 51798; 81002; 87077; 87086; 87147; 87186; 99214

== ENCOUNTER → 2023-09-16 13:02 | Outpatient (CLI) | payer MEDICARE, OTHER, SELFPAY ==
[2022-10-27 09:51] VITALS: BMI 24.0
== END ==
PROVIDERS: Family Provider Internal Medicine; PCP Internal Medicine; Visit Provider Specialist
DX: N40.1 Benign prostatic hyperplasia with lower urinary tract symptoms (principal); N13.8 Other obstructive and reflux uropathy; R33.9 Retention of urine, unspecified; N35.912 Unspecified bulbous urethral stricture, male
CPT/HCPCS: 51798; 81002; 87077; 87086; 87186; 99215

== ENCOUNTER 2023-10-29 12:37 | Day surgery (SDC) | payer MEDICARE, OTHER, SELFPAY ==
[2022-10-27 09:51] VITALS: BMI 24.0
[2023-10-26 14:24] VITALS: BMI 25.1
--- NOTE | 2023-10-29 12:44 | PM.PREOP ---
Pre-operative Note Interval Note History & Physical reviewed/Exam performed by Physician: Yes Changes to H&P: No
[2023-10-29 13:15] VITALS: BP 111/72; PULSE 76; RESP 16; TEMP 36.7; O2SAT 98; BMI 25.1
[2023-10-29] MEDS: LACTATED RINGERS 1,000 ML 42 ML IV (13:23)
[2023-10-29] MEDS: GENTAMICIN 320 MG in SODIUM CHLORIDE 0.9% 100 ML 108 MG IV (13:45)
[2023-10-29] MEDS: ACETAMINOPHEN IV 1,000 MG/100 ML VIAL 400 MG IV (14:05)
--- NOTE | 2023-10-29 14:05 | SUR.OPER ---
Lithotomy on padded OR bed, head on pillow, arms secured on padded arm boards at <90 degrees abduction. Legs secured in padded yellow fins stirrups.
[2023-10-29] MEDS: LIDOCAINE 1% (PF) 5 ML 1 ML INJ (14:26)
--- NOTE | 2023-10-29 14:30 | PM.OP.1 ---
Operative Date/Time/Diagnoses Date of procedure: 10/29/23 Time of procedure: 14:20 Pre-op diagnosis: 1. Bladder neck contracture. 2. Urinary retention. 3. History of UTI urosepsis. Post-op diagnosis: same Procedure & Clinicians Procedure: 1. Cystoscopy/dilation bladder neck contracture. 2. Cystoscopy/injection bladder neck (Kenalog). Same procedure as scheduled: No (Intraoperative decision to not perform incision/TURBNC.) Surgeon: Ruth Mas Click Yes if Unassisted: Yes Anesthesia Type: General Operative Notes Findings: 1. Urethra normal caliber without annular stricture or lesion. 2. External sphincter coapted with normal overlying urothelium and vascularity. 3. Prostate-status post TUR. Midline kissing apical lateral tissue and intact verumontanum. Remainder of prostate patent status post TUR. Tight bladder neck contracture noted with reasonably well vascularized mucosa. 4. Bladder-2+ trabeculation. Normal ureteral orifices bilaterally. Closure Type: not applicable Specimen(s): other (Prostate fluid for culture) Applied: catheter (18 Lebanese silicone catheter to gravity drainage.) Estimated Blood Loss (mL): 1 Blood products transfused: none Procedure in detail: Patient was positioned supine was administered general anesthesia. He was then repositioned semi-lithotomy lower abdomen, genitalia, and groin were then prepped and draped in sterile fashion. The 20 Lebanese injection/continuous endoscope was then advanced lower urinary tract under direct vision with the findings as described above. The beak of the scope was then insinuated into the tight bladder neck and advanced gently with resulting disruption of the bladder neck contracture substantially. A small amount of purulent appearing fluid was seen emanating from a small recess at a proximally 8 position. A 10 cc syringe was attached to the outflow port of the scope and a sample was withdrawn and submitted to the laboratory for reflex culture. The specimen was not grossly purulent however. The endoscopic needle was then advanced through the working port of the scope and Kenalog was injected at the 3, 5, 7, and 9 position. The needle was then withdrawn. A super stiff wire was then advanced through the working channel of the continuous flow endoscope. The continuous-flow endoscope was then backloaded off the wire. Mondragon sounds were then utilized beginning at 18 Lebanese and successfully advancing to 28 Lebanese over the super stiff wire. The bladder next seemed widely patent. At 28 Lebanese lateral, posterior, and anterior fulcrum of the scope was met with no resistance. The scope was then backloaded off the super stiff guidewire. A 20 Lebanese silicone catheter was then fashioned into a Councill tip style. This catheter was then advanced over the super stiff guidewire into the bladder. The balloon was then inflated 10 cc in the wire was remove. The catheter was then placed to gravity drainage. Patient was then repositioned supine, was awakened, then transferred to [facility] in stable condition. Complications: none Post-operative Condition: stable Disposition: PACU Plan for aftercare: Discharge home.
[2023-10-29 14:39] VITALS: BP 107/65; PULSE 61; RESP 16; TEMP 37.2; O2SAT 96
[2023-10-29 14:44] VITALS: BP 107/65; PULSE 63; RESP 16; O2SAT 98
[2023-10-29 14:48] VITALS: BP 95/66; PULSE 47; RESP 16; O2SAT 98
[2023-10-29 14:53] VITALS: BP 113/69; PULSE 59; RESP 16; O2SAT 98
[2023-10-29 15:07] VITALS: BP 119/77; PULSE 57; RESP 16; TEMP 36.2; O2SAT 96
== END 2023-10-29 15:24 | disposition home or self-care (01) ==
PROVIDERS: Family Provider Internal Medicine; PCP Internal Medicine; Referring Provider Specialist; Visit Provider Specialist
PROC: 0TBC8ZZ Excision of Bladder Neck, Via Natural or Artificial Opening Endoscopic (ICD-10-PCS; CPT 52500; principal; 2023-10-29 14:45)
DX: N32.0 Bladder-neck obstruction (principal); N40.1 Benign prostatic hyperplasia with lower urinary tract symptoms; N13.8 Other obstructive and reflux uropathy
CPT/HCPCS: 52283; 87070; 87075; 87205; J0136; J1100; J1170; J2704

== ENCOUNTER → 2023-11-03 09:44 | Outpatient (CLI) | payer MEDICARE, OTHER, SELFPAY ==
[2022-10-27 09:51] VITALS: BMI 24.0
== END ==
LOC: CAR 09:45
PROVIDERS: Family Provider Internal Medicine; PCP Internal Medicine; Referring Provider Internal Medicine; Visit Provider Internal Medicine
DX: I48.91 Unspecified atrial fibrillation (principal); I48.92 Unspecified atrial flutter
CPT/HCPCS: 93242

== ENCOUNTER → 2023-11-10 10:49 | Outpatient (CLI) | payer MEDICARE, OTHER, SELFPAY ==
[2022-10-27 09:51] VITALS: BMI 24.0
== END ==
PROVIDERS: Family Provider Internal Medicine; PCP Internal Medicine; Visit Provider Specialist
DX: N40.1 Benign prostatic hyperplasia with lower urinary tract symptoms (principal); N13.8 Other obstructive and reflux uropathy
CPT/HCPCS: 87086

== ENCOUNTER → 2024-01-17 11:05 | Outpatient (CLI) | payer MEDICARE, OTHER, SELFPAY ==
[2022-10-27 09:51] VITALS: BMI 24.0
[2024-01-17 13:06] LABS: Prostate Specific Antigen 4.02 ng/mL (0.10-4.00)
== END ==
PROVIDERS: Family Provider Internal Medicine; PCP Internal Medicine; Referring Provider Specialist; Visit Provider Specialist
DX: R97.20 Elevated prostate specific antigen [PSA] (principal)
CPT/HCPCS: 36415; 84153

== ENCOUNTER → 2024-01-19 10:34 | Outpatient (CLI) | payer MEDICARE, OTHER, SELFPAY ==
[2022-10-27 09:51] VITALS: BMI 24.0
[2024-01-19 11:57] LABS: Appearance Urine UA CLEAR; Bilirubin Urine UA NEGATIVE (NEGATIVE); Color Urine UA YELLOW; Glucose Urine UA NEGATIVE (Negative); Ketones Urine UA NEGATIVE (NEGATIVE); Leukocyte Esterase Urine UA 1+ (NEGATIVE); Nitrite Urine UA POSITIVE (Negative); Occult Blood Urine UA NEGATIVE (Negative); Protein Urine UA NEGATIVE (Negative); Urobilinogen Urine UA 0.2 E.U./dL (0.2)
[2024-01-19 12:09] LABS: Bacteria Urine Few (2-10); RBC Urine None Seen (0-5/HPF); Squamous Epithelial Cell Urine 0-1 /HPF (0-5/HPF); Urine Volume 10mL (spun); WBC Urine 1-5/HPF (0-5/HPF)
[2024-01-19 12:10] LABS: Culture Indicated Urine Specimen Cultured
== END ==
PROVIDERS: Family Provider Internal Medicine; PCP Internal Medicine; Visit Provider Urology
DX: N40.1 Benign prostatic hyperplasia with lower urinary tract symptoms (principal); N13.8 Other obstructive and reflux uropathy
CPT/HCPCS: 81001; 87077; 87086

== ENCOUNTER → 2024-02-09 14:56 | Outpatient (CLI) | payer MEDICARE, OTHER, SELFPAY ==
[2022-10-27 09:51] VITALS: BMI 24.0
--- NOTE | 2024-02-09 | DI.US.S_ITS ---
PROCEDURE: US RENAL COMPLETE INDICATIONS: urinary retention TECHNIQUE: Real-time scanning was performed of the kidneys and bladder, with image documentation. COMPARISON: [facility], CT, CT ABDOMEN PELVIS WITH CONTRAST, 08/17/2023, 17:35. FINDINGS: Kidneys: Kidneys are normal in size. Right kidney measures 11.2 cm long; left kidney measures 12.0 cm long. Right renal cortical thickness is 1.5 cm; left renal cortical thickness is 1.8 cm. Renal cortical echotexture is normal. No hydronephrosis or nephrolithiasis. No suspicious solid mass lesions. Simple right renal cyst measuring 5 7 cm. Bladder: Pre-void bladder volume is 55 mL. Post-void residual and. Pre-void images demonstrate no intraluminal masses or stones. On pre-void images, bilateral ureteral jets are noted with color Doppler interrogation. (Of note, ureteral jets may not be detectable in up to 25% of cases due to insufficient differences in specific gravity between ureteral and bladder urine). Miscellaneous: No free pelvic fluid. IMPRESSION: No urinary retention. Dictated by: Paula Covington M.D. on 02/09/2024 at 21:26 Approved by: Paula Covington M.D. on 02/09/2024 at 21:28
== END ==
PROVIDERS: Family Provider Internal Medicine; PCP Internal Medicine; Referring Provider Urology; Visit Provider Urology
DX: N28.1 Cyst of kidney, acquired (principal); R33.9 Retention of urine, unspecified
CPT/HCPCS: 76770

== ENCOUNTER → 2024-05-26 11:30 | Outpatient (CLI) | payer MEDICARE, OTHER, SELFPAY ==
[2022-10-27 09:51] VITALS: BMI 24.0
[2024-05-26 11:44] LABS: Appearance Urine UA CLOUDY; Bilirubin Urine UA NEGATIVE (NEGATIVE); Color Urine UA YELLOW; Glucose Urine UA NEGATIVE (Negative); Ketones Urine UA NEGATIVE (NEGATIVE); Leukocyte Esterase Urine UA 2+ (NEGATIVE); Nitrite Urine UA POSITIVE (Negative); Occult Blood Urine UA NEGATIVE (Negative); Protein Urine UA NEGATIVE (Negative); Specific Gravity Urine UA 1.015 (1.000-1.035); Urobilinogen Urine UA 0.2 E.U./dL (0.2); pH Urine UA 6.5 (4.5-8.0)
[2024-05-26 11:45] LABS: Urine Volume 10mL (spun)
[2024-05-26 11:47] LABS: RBC Urine None Seen (0-5/HPF)
[2024-05-26 11:48] LABS: Bacteria Urine Many (>30); Culture Indicated Urine Specimen Cultured; Squamous Epithelial Cell Urine None Seen (0-5/HPF); WBC Urine 10-30/HPF (0-5/HPF)
== END ==
PROVIDERS: Family Provider Internal Medicine; PCP Internal Medicine; Visit Provider Urology
DX: R33.9 Retention of urine, unspecified (principal)
CPT/HCPCS: 81001; 87077; 87086

== ENCOUNTER → 2024-06-08 13:14 | Outpatient (CLI) | payer MEDICARE, OTHER, SELFPAY ==
[2022-10-27 09:51] VITALS: BMI 24.0
[2024-06-08 13:39] LABS: Appearance Urine UA CLEAR; Bilirubin Urine UA NEGATIVE (NEGATIVE); Color Urine UA YELLOW; Glucose Urine UA NEGATIVE (Negative); Ketones Urine UA NEGATIVE (NEGATIVE); Leukocyte Esterase Urine UA TRACE (NEGATIVE); Nitrite Urine UA NEGATIVE (Negative); Occult Blood Urine UA NEGATIVE (Negative); Protein Urine UA NEGATIVE (Negative); Specific Gravity Urine UA <=1.005 (1.000-1.035); Urobilinogen Urine UA 0.2 E.U./dL (0.2)
[2024-06-08 13:46] LABS: Bacteria Urine Few (2-10); Culture Indicated Urine Cult Not Indicated; RBC Urine 1-5/HPF (0-5/HPF); Squamous Epithelial Cell Urine 1-5 /HPF (0-5/HPF); Urine Volume 10mL (spun); WBC Urine 1-5/HPF (0-5/HPF)
== END ==
PROVIDERS: Family Provider Internal Medicine; PCP Internal Medicine; Visit Provider Urology
DX: R33.9 Retention of urine, unspecified (principal); R39.9 Unspecified symptoms and signs involving the genitourinary system
CPT/HCPCS: 81001

== ENCOUNTER → 2024-08-08 09:02 | Outpatient (CLI) | payer MEDICARE, OTHER, SELFPAY ==
[2022-10-27 09:51] VITALS: BMI 24.0
[2024-08-08 10:55] LABS: Prostate Specific Antigen 1.76 ng/mL (0.10-4.00)
== END ==
PROVIDERS: Family Provider Internal Medicine; PCP Internal Medicine; Referring Provider Urology; Visit Provider Urology
DX: R97.20 Elevated prostate specific antigen [PSA] (principal)
CPT/HCPCS: 36415; 84153

== ENCOUNTER → 2024-08-09 09:42 | Outpatient (CLI) | payer MEDICARE, OTHER, SELFPAY ==
[2022-10-27 09:51] VITALS: BMI 24.0
== END ==
PROVIDERS: Family Provider Internal Medicine; PCP Internal Medicine; Visit Provider Urology
DX: N40.1 Benign prostatic hyperplasia with lower urinary tract symptoms (principal); N13.8 Other obstructive and reflux uropathy; R33.9 Retention of urine, unspecified
CPT/HCPCS: 87077; 87086; 87186